=== PATIENT | male | born 1950 | race Caucasian/White ===

== ENCOUNTER → 2017-11-07 | Day surgery (SDC) | payer MEDICARE, OTHER ==
[~2017-11-07] MED LIST: Ampicillin 2 GM in Sodium Chloride 0.9% 100 ML IV ONE; Lactated Ringers 1,000 ML IV SCH; Midazolam 1 MG/ML 2 ML SDV ONE; Propofol 200 MG/20 ML SDV ONE; fentaNYL 100 MCG/2 ML SDV ONE
[2017-11-07 09:06] VITALS: BP 129/72
--- NOTE | 2017-11-07 11:45 | OR ---
DATE OF PROCEDURE: 11/07/2017 PREOPERATIVE DIAGNOSIS: History of tubular adenomas. POSTOPERATIVE DIAGNOSES: Diverticulosis, 2 small colon polyps 30 and 45 cm from anal verge, history of tubular adenomas. PROCEDURE PERFORMED: Colonoscopy to the cecum with biopsy resection of 2 small colon polyps 30 and 45 cm from the anal verge. ANESTHESIA: IV anesthesia with monitored anesthesia care. INDICATION: This is a 67-year-old white male is referred for a colonoscopy. He has a history of tubular adenomas. His last colonoscopic exam he says was done 3 years ago. I counseled him for the procedure including risks, alternatives and gave his informed consent to proceed. DESCRIPTION OF PROCEDURE: The patient was placed in the left lateral decubitus position. IV anesthesia was administered by the Anesthesia Service. Time-out was held. A rectal exam was performed, which was unremarkable. The flexible video Olympus colonoscope was introduced through his anus, up his rectum and out his colon all the way to the cecum. Once the cecum was reached, the scope was slowly withdrawn examining the mucosa throughout. No mucosal abnormalities were noted. We reached 45 cm from anal verge. Here, we saw a small polyp which was removed with a couple bites of the biopsy forceps. We also saw a few scattered left-sided diverticula. The scope was brought back to 30 cm where another small polyp was seen. This was removed with the biopsy forceps. The scope was withdrawn further with no other lesions noted. The scope was retroflexed in the rectum with the distal rectum appearing unremarkable. The scope was straightened and removed. He tolerated the procedure well. Denny Corcoran MD /[id number]
== END ==
LOC: JP.SDS 06:22
PROVIDERS: ATTEND Surgery
DX: Z12.11 Encounter for screening for malignant neoplasm of colon (principal); D12.5 Benign neoplasm of sigmoid colon; K57.30 Diverticulosis of large intestine without perforation or abscess without bleeding; I25.10 Atherosclerotic heart disease of native coronary artery without angina pectoris; I10 Essential (primary) hypertension; E78.5 Hyperlipidemia, unspecified; R73.03 Prediabetes; E66.9 Obesity, unspecified; Z68.41 Body mass index [BMI] 40.0-44.9, adult; F32.9 Major depressive disorder, single episode, unspecified; F17.200 Nicotine dependence, unspecified, uncomplicated; Z79.82 Long term (current) use of aspirin; Z79.899 Other long term (current) drug therapy; Z88.4 Allergy status to anesthetic agent; Z86.010 Personal history of colon polyps
CPT/HCPCS: 45380; J0290; J2250; J2704; J3010; J7030; J7120

== ENCOUNTER 2023-07-06 08:15 | Emergency (ER) | payer MEDICARE, OTHER ==
[2023-07-06 08:42] VITALS: BP 137/63; PULSE 78
[2023-07-06] MEDS: oxyCODONE 5 MG Tab PO ONE (08:57)
[2023-07-06] MEDS ORDERED: Sodium Chloride 0.9% 500 ML IV ONE (09:31)
[2023-07-06 09:41] LABS: BASOPHILS ABSOLUTE AUTO 0.04 K/uL (0.00-0.10); BASOPHILS PERCENT AUTO 0.4 % (0.1-1.3); EOSINOPHILS ABSOLUTE AUTO 0.16 K/uL (0.00-0.40); EOSINOPHILS PERCENT AUTO 1.6 % (0.0-5.4); HEMATOCRIT 42.3 % (38.4-49.7); HEMOGLOBIN 14.1 g/dL (12.9-16.9); IMMATURE GRAN ABSOLUTE AUTO 0.04 K/uL (0.00-0.23); IMMATURE GRAN PERCENT AUTO 0.4 % (0.0-0.7); LYMPHOCYTES ABSOLUTE AUTO 1.95 K/uL (0.8-3.3); LYMPHOCYTES PERCENT AUTO 20.1 % (11.4-47.7); MEAN CORPUSCULAR HEMOGLOBIN 31.1 pg (31.6-35.5); MEAN CORPUSCULAR HGB CONC 33.3 g/dL (31.6-35.5); MEAN CORPUSCULAR VOLUME 93.4 fL (81.4-99.0); MONOCYTES ABSOLUTE AUTO 0.83 K/uL (0.20-0.90); MONOCYTES PERCENT AUTO 8.5 % (3.3-12.6); PLATELET COUNT,PLT 269 K/uL (130-375); RED BLOOD CELL COUNT 4.53 M/uL (4.14-5.76); WHITE BLOOD CELL COUNT,WBC 9.7 K/uL (3.2-11.0)
[2023-07-06 10:01] LABS: CALCIUM 8.7 mg/dL (8.5-10.1); CREATININE 0.9 mg/dL (0.8-1.3); EST CRCL DRUG DOSING (CG) 76.6 mL/min; POTASSIUM,K 4.3 mmol/L (3.6-5.2)
[2023-07-06 10:06] LABS: ANION GAP 10.3 mmol/L (5.0-14.0)
== END 2023-07-06 11:18 | disposition home or self-care (01) ==
LOC: JP.ED 08:15
DX: S40.012A Contusion of left shoulder, initial encounter (principal); S46.002A Unspecified injury of muscle(s) and tendon(s) of the rotator cuff of left shoulder, initial encounter; I10 Essential (primary) hypertension; E78.00 Pure hypercholesterolemia, unspecified; Z88.4 Allergy status to anesthetic agent; Z79.82 Long term (current) use of aspirin; Z79.85 Long-term (current) use of injectable non-insulin antidiabetic drugs; Z95.5 Presence of coronary angioplasty implant and graft; Z79.899 Other long term (current) drug therapy; W19.XXXA Unspecified fall, initial encounter
CPT/HCPCS: 36415; 73030; 73200; 80048; 85025; 99284; A9270

== ENCOUNTER 2023-08-03 06:24 | Day surgery (SDC) | payer MEDICARE, OTHER ==
[2023-08-03] MEDS: Lactated Ringers 1,000 ML IV SCH (07:15)
[2023-08-03] MEDS ORDERED: fentaNYL 100 MCG/2 ML SDV ONE (07:43)
[2023-08-03] MEDS ORDERED: Propofol 200 MG/20 ML SDV ONE (07:43)
[2023-08-03 09:52] VITALS: BP 165/83; PULSE 69
== END 2023-08-03 10:03 | disposition home or self-care (01) ==
LOC: JP.SDS 06:24
PROVIDERS: ATTEND Surgery
DX: Z12.11 Encounter for screening for malignant neoplasm of colon (principal); D12.2 Benign neoplasm of ascending colon; K63.5 Polyp of colon; I10 Essential (primary) hypertension; I25.10 Atherosclerotic heart disease of native coronary artery without angina pectoris; F32.A Depression, unspecified
CPT/HCPCS: 00811; 45380; 88305; J2704; J3010; J7120